=== PATIENT | male | born 1970 | race Caucasian/White ===

== ENCOUNTER 2016-09-01 16:15 | Emergency (ER) | payer OTHER ==
[~2016-09-01] VITALS: Ht 190.5 cm; Wt 127.0 kg
[2016-09-01 16:15] VITALS: BP 143/76
[2016-09-01] MEDS ORDERED: XARE20TA PO (16:26)
[2016-09-01] MEDS ORDERED: OMEP20CA3 PO (16:26)
[2016-09-01] MEDS ORDERED: INDOMETHACIN 25 MG CAP PO ONE (17:00)
[2016-09-01] MEDS ORDERED: INDO50SU2 PR (17:07)
[2016-09-01] MEDS ORDERED: INDO50SU2 PO (17:29)
[2016-09-01] MEDS ORDERED: INDO50CA PO (17:31)
[2016-09-01 17:54] LABS: ANION GAP 6 MEQ/L (8-16); BLOOD UREA NITROGEN 13 MG/DL (7-18); CALCIUM LEVEL 8.1 MG/DL (8.5-10.1); CARBON DIOXIDE LEVEL 27 MEQ/L (21-32); CHLORIDE LEVEL 108 MEQ/L (98-107); CREATININE FOR GFR 1.02 MG/DL (0.70-1.30); GLOMERULAR FILTRATION RATE > 60.0 (>60); GLUCOSE, FASTING 96 MG/DL (70-105); POTASSIUM SERUM 3.9 MEQ/L (3.5-5.1); SODIUM LEVEL 141 MEQ/L (136-145); URIC ACID 8.7 MG/DL (3.5-7.2)
== END 2016-09-01 17:42 | disposition home or self-care (01) ==
LOC: M ED 17:06
DX: M10.9 Gout, unspecified (principal); Z86.718 Personal history of other venous thrombosis and embolism; Z79.899 Other long term (current) drug therapy

== ENCOUNTER 2017-08-19 10:52 | Day surgery (SDC) | payer OTHER ==
[2017-08-19] MEDS ORDERED: PROPOFOL 200 MG/20 ML VIAL As Ordered ×2 (11:21→11:49)
[2017-08-19] MEDS ORDERED: LIDOCAINE 2% INJ 100 MG/5 ML SDV (FOR ANES.) As Ordered (11:21)
[2017-08-19] MEDS ORDERED: NS 1,000 ML IV (11:30)
== END 2017-08-19 12:50 | disposition home or self-care (01) ==
LOC: M OPP 10:52
DX: K62.5 Hemorrhage of anus and rectum (principal); D12.5 Benign neoplasm of sigmoid colon; D12.0 Benign neoplasm of cecum; K64.0 First degree hemorrhoids; Z86.79 Personal history of other diseases of the circulatory system; I73.9 Peripheral vascular disease, unspecified; K21.9 Gastro-esophageal reflux disease without esophagitis; M10.9 Gout, unspecified; Z86.718 Personal history of other venous thrombosis and embolism; D68.51 Activated protein C resistance; R06.83 Snoring; G47.30 Sleep apnea, unspecified; Z79.01 Long term (current) use of anticoagulants; Z79.899 Other long term (current) drug therapy
CPT/HCPCS: 45385

== ENCOUNTER → 2020-04-04 | Outpatient (CLI) | payer OTHER ==
[~2020-04-04] MED LIST: INDO50CA91 PO; INDO50SU2 PO; INDO50SU2 PR; OMEP1CAP73 PO; XARE20TA PO
--- NOTE | 2020-04-04 14:30 | REP ---
INDICATION: ABNORMAL LIVER FXN MRCP. COMPARISON: Comparison is made with images from CT study of the chest March 22, 2015. No other comparison imaging.. TECHNIQUE: Axial and coronal imaging planes utilized. MRCP protocol is performed. In addition, axial and coronal turbo spin echo, diffusion, in and out of phase, and gradient echo sequences are carried out. 3D maximum intensity projection images are generated. FINDINGS: There is no evidence of intrahepatic or extrahepatic biliary ductal dilation. There is a folded, possibly septated appearance of the gallbladder fundus but no filling defect is seen within the gallbladder. There is no evidence of cholelithiasis or choledocholithiasis. The main pancreatic duct is unremarkable. No pancreatic mass lesion is observed. There is no evidence of ascites. No focal hepatic or splenic lesion is seen. There is some signal dropout in the liver liver parenchyma on out of phase imaging consistent with fatty infiltration. No adrenal lesion is observed. No renal abnormality is seen. There is no evidence of ascites. IMPRESSION: Folded versus septated appearance the gallbladder fundus. No mass or calculus seen. Otherwise normal MRCP. Fatty infiltration of the liver. Otherwise unremarkable MRI of the liver an abdomen. <Electronically signed by Dwayne Nagel > 04/04/20 [id number]
== END ==
LOC: M RAD 10:47
DX: R94.5 Abnormal results of liver function studies (principal); K76.0 Fatty (change of) liver, not elsewhere classified

== ENCOUNTER → 2020-10-17 | Outpatient (CLI) | payer OTHER ==
[~2020-10-17] MED LIST changes: +COVI30VI IM; +WARF-21 PO; +WARF-23 PO
== END ==
LOC: M LABSMTC 10:21
PROVIDERS: ATTEND Anesthesiology
DX: Z01.812 Encounter for preprocedural laboratory examination (principal)

== ENCOUNTER 2020-10-22 07:49 | Day surgery (SDC) | payer OTHER ==
[~2020-10-22] VITALS: Ht 190.5 cm; Wt 122.5 kg
[~2020-10-22 07:49] MED LIST changes: +LIDOCAINE 2% 100MG/5ML SDV (FOR ANES.) As Ordered ONE; +NS 1,000 ML IV ONE; +propofoL 200 MG/20 ML VIAL As Ordered ONE
--- NOTE | 2020-10-22 09:02 | ROOR ---
Patient Name: Sonny Coe Procedure Date: 10/22/2020 8:37 AM Date of : 1970 Age: 50 Room: [facility] Gender: Male Note Status: Finalized Procedure: Total Colonoscopy to Cecum Indications: High risk colon cancer surveillance: Personal history of colonic polyps, Last colonoscopy: 2017 Providers: Sherwin Zamora MD Referring MD: JOHNY MCCLAIN MD Requesting Provider: Medicines: Monitored Anesthesia Care Complications: No immediate complications. Procedure: Pre-Anesthesia Assessment: - The heart rate, respiratory rate, oxygen saturations, blood pressure, adequacy of pulmonary ventilation, and response to care were monitored throughout the procedure. The Colonoscope was introduced through the anus and advanced to the cecum, identified by appendiceal orifice and ileocecal valve. The colonoscopy was performed without difficulty. The patient tolerated the procedure well. The quality of the bowel preparation was excellent. Findings: The perianal and digital rectal examinations were normal. Non-bleeding internal hemorrhoids were found during retroflexion. The hemorrhoids were small and Grade I (internal hemorrhoids that do not prolapse). The exam was otherwise without abnormality on direct and retroflexion views. Impression: - Non-bleeding internal hemorrhoids. - The examination was otherwise normal on direct and retroflexion views. - No specimens collected. - The exam was otherwise normal to the cecum. Recommendation: - Patient has a contact number available for emergencies. The signs and symptoms of potential delayed complications were discussed with the patient. Return to normal activities tomorrow. Written discharge instructions were provided to the patient. - High fiber diet. - Discharge patient to home. - Continue present medications. - Resume Coumadin (warfarin) at prior dose today. - Repeat colonoscopy in 5 years for surveillance. - Return to referring physician. - The findings and recommendations were discussed with the patient's family. Procedure Code(s): --- Professional --- G0105, Colorectal cancer screening; colonoscopy on individual at high risk Diagnosis Code(s): --- Professional --- Z86.010, Personal history of colonic polyps K64.0, First degree hemorrhoids CPT copyright 2019 [employer]. All rights reserved. The codes documented in this report are preliminary and upon cable mock up assembler review may be revised to meet current compliance requirements. Sherwin Zamora MD Sherwin Zamora MD 10/22/2020 9:01:43 AM Electronically signed by Sherwin Zamora MD Number of Addenda: 0 Note Initiated On: 10/22/2020 8:37 AM Estimated Blood Loss: Estimated blood loss: none.
[2020-10-22 09:17] VITALS: BP 127/88
== END 2020-10-22 09:19 | disposition home or self-care (01) ==
LOC: M OPP 07:49
PROVIDERS: ATTEND Internal Medicine Gastroenterology
DX: Z12.11 Encounter for screening for malignant neoplasm of colon (principal); Z86.010 Personal history of colon polyps; K64.0 First degree hemorrhoids; K21.9 Gastro-esophageal reflux disease without esophagitis; D68.51 Activated protein C resistance; Z79.01 Long term (current) use of anticoagulants

== ENCOUNTER 2020-12-23 12:49 | Emergency (ER) | payer OTHER ==
[~2020-12-23] VITALS: Ht 190.5 cm; Wt 125.0 kg
[~2020-12-23 12:49] MED LIST changes: -LIDOCAINE 2% 100MG/5ML SDV (FOR ANES.) As Ordered ONE; -NS 1,000 ML IV ONE; -propofoL 200 MG/20 ML VIAL As Ordered ONE
[2020-12-23 15:18] LABS: BASO % 0.4 % (0.0-1.0); EOS # 0.1 10^3/uL (0.0-0.5); EOS % 0.9 % (0.0-3.0); HEMATOCRIT 50.3 % (42.0-52.0); HEMOGLOBIN 17.2 g/dl (13.5-17.5); LYMPH % 25.8 % (24.0-44.0); MEAN CORPUSCULAR HEMOGLOBIN 30.6 pg (27.0-33.0); MEAN CORPUSCULAR HGB CONC 34.2 g/dl (32.0-36.5); MEAN CORPUSCULAR VOLUME 89.5 fl (80.0-96.0); MONO # 0.9 10^3/uL (0.0-0.8); MONO % 11.4 % (2.0-8.0); NEUTROPHILS # 4.6 10^3/uL (1.5-8.5); NEUTROPHILS % 60.7 % (36.0-66.0); PLATELET COUNT, AUTOMATED 170 10^3/uL (150-450); RED BLOOD COUNT 5.62 10^6/uL (4.30-6.10); WHITE BLOOD COUNT 7.6 10^3/uL (4.0-10.0)
[2020-12-23 15:54] LABS: BILIRUBIN,DIRECT 0.1 MG/DL (0.0-0.2); BILIRUBIN,TOTAL 0.5 MG/DL (0.2-1.0); C REACTIVE PROTEIN QUANTITATIV 2.9 MG/DL (0.00-0.30); TOTAL PROTEIN 7.7 GM/DL (6.4-8.2); URIC ACID 8.7 MG/DL (3.5-7.2)
--- NOTE | 2020-12-23 15:58 | REP ---
INDICATION: pain in foot/ hx calf pain COMPARISON: 11/11/2014 TECHNIQUE: Reyes scale and color Doppler evaluation using linear high frequency transducer. FINDINGS: Ultrasound examination of the left lower extremity deep venous structures from the common femoral vein through the calf/ankle to include the peroneal, and tibial veins demonstrates normal compressibility flow and wave patterns in response to respiration and augmentation. There is no evidence for deep venous thrombosis. Contralateral CFV is patent and normal. IMPRESSION: No evidence for deep venous thrombosis. <Electronically signed by Carlton Jalloh > 12/23/20 [id number]
[2020-12-23 16:05] VITALS: BP 112/73
[2020-12-23] MEDS ORDERED: MEDR4PAK PO (16:26)
[2020-12-23 16:35] LABS: ERYTHROCYTE SEDIMENTATION RATE 11 mm/hr (0-15)
== END 2020-12-23 16:58 | disposition home or self-care (01) ==
LOC: M ED 12:49
DX: M10.9 Gout, unspecified (principal); Z83.2 Family history of diseases of the blood and blood-forming organs and certain disorders involving the immune mechanism; Z79.01 Long term (current) use of anticoagulants

== ENCOUNTER 2021-09-26 11:28 | Emergency (ER) | payer OTHER ==
[~2021-09-26] VITALS: Ht 190.5 cm; Wt 285.0 kg
[~2021-09-26 11:28] MED LIST changes: +MEDR4PAK PO
[2021-09-26] MEDS ORDERED: NS 500 ML IV ONE (13:50)
[2021-09-26] MEDS ORDERED: ACETAMINOPHEN 325 MG TAB PO ONE (13:50)
[2021-09-26 14:15] LABS: BASO % 0.4 % (0.0-1.0); EOS # 0.1 10^3/uL (0.0-0.5); EOS % 1.2 % (0.0-3.0); HEMATOCRIT 46.6 % (42.0-52.0); LYMPH # 1.9 10^3/uL (1.5-5.0); LYMPH % 36.2 % (24.0-44.0); MEAN CORPUSCULAR HEMOGLOBIN 30.9 pg (27.0-33.0); MEAN CORPUSCULAR HGB CONC 34.3 g/dl (32.0-36.5); MEAN CORPUSCULAR VOLUME 90.1 fl (80.0-96.0); MONO # 0.6 10^3/uL (0.0-0.8); MONO % 10.8 % (2.0-8.0); NEUTROPHILS # 2.7 10^3/uL (1.5-8.5); NEUTROPHILS % 51.2 % (36.0-66.0); PLATELET COUNT, AUTOMATED 119 10^3/uL (150-450); RED BLOOD COUNT 5.17 10^6/uL (4.30-6.10); WHITE BLOOD COUNT 5.2 10^3/uL (4.0-10.0)
[2021-09-26 14:27] LABS: BLOOD UREA NITROGEN 12 MG/DL (7-18); CALCIUM LEVEL 9.7 MG/DL (8.5-10.1); CARBON DIOXIDE LEVEL 29 MEQ/L (21-32); CHLORIDE LEVEL 109 MEQ/L (98-107); CREATININE FOR GFR 1.05 MG/DL (0.70-1.30); GLOMERULAR FILTRATION RATE > 60.0 (>56); GLUCOSE, FASTING 87 MG/DL (70-100); POTASSIUM SERUM 4.8 MEQ/L (3.5-5.1); SODIUM LEVEL 142 MEQ/L (136-145)
[2021-09-26 14:41] LABS: ERYTHROCYTE SEDIMENTATION RATE 2 mm/hr (0-20)
[2021-09-26 15:04] LABS: INR 2.14; PROTHROMBIN TIME 24.3 SECONDS (12.7-14.5)
[2021-09-26 15:56] VITALS: BP 164/111
== END 2021-09-26 15:57 | disposition home or self-care (01) ==
LOC: M ED 11:28
DX: R51.9 Headache, unspecified (principal); K40.31 Unilateral inguinal hernia, with obstruction, without gangrene, recurrent; K21.9 Gastro-esophageal reflux disease without esophagitis; Z79.01 Long term (current) use of anticoagulants; Z79.899 Other long term (current) drug therapy

== ENCOUNTER 2022-04-28 14:58 | Emergency (ER) | payer OTHER ==
[~2022-04-28] VITALS: Ht 190.5 cm; Wt 125.0 kg
[2022-04-28] MEDS ORDERED: ALLO100T PO (15:27)
[2022-04-28] MEDS ORDERED: ACETAMINOPHEN TAB 650MG DOSE (2X325MG) PO ONE (18:30)
[2022-04-28] MEDS ORDERED: ceFAZolin SOD 2 GM in IV 1 EA IV ONE (18:35)
[2022-04-28 19:31] LABS: BASO % 0.4 % (0.0-1.0); EOS # 0.1 10^3/uL (0.0-0.5); EOS % 1.6 % (0.0-3.0); HEMATOCRIT 41.4 % (42.0-52.0); HEMOGLOBIN 14.4 g/dl (13.5-17.5); LYMPH # 1.6 10^3/uL (1.5-5.0); LYMPH % 32.3 % (24.0-44.0); MEAN CORPUSCULAR HEMOGLOBIN 31.3 pg (27.0-33.0); MEAN CORPUSCULAR HGB CONC 34.8 g/dl (32.0-36.5); MONO # 0.6 10^3/uL (0.0-0.8); MONO % 11.8 % (2.0-8.0); NEUTROPHILS # 2.6 10^3/uL (1.5-8.5); NEUTROPHILS % 53.7 % (36.0-66.0); PLATELET COUNT, AUTOMATED 144 10^3/uL (150-450); WHITE BLOOD COUNT 4.9 10^3/uL (4.0-10.0)
[2022-04-28 19:44] LABS: INR 1.45; PROTHROMBIN TIME 17.9 SECONDS (12.5-14.5)
[2022-04-28 19:53] LABS: BLOOD UREA NITROGEN 14 MG/DL (9-23); CALCIUM LEVEL 8.6 MG/DL (8.5-10.1); CARBON DIOXIDE LEVEL 28 MMOL/L (20-31); CHLORIDE LEVEL 106 MMOL/L (98-107); CREATININE FOR GFR 1.08 MG/DL (0.70-1.30); GLOMERULAR FILTRATION RATE > 60.0 (>56); GLUCOSE, FASTING 77 MG/DL (60-100); POTASSIUM SERUM 3.9 MMOL/L (3.5-5.1); SODIUM LEVEL 141 MMOL/L (136-145)
[2022-04-28] MEDS ORDERED: CEPH500C PO (21:07)
[2022-04-28] MEDS ORDERED: NS 1,000 ML IV ONE (21:10)
[2022-04-28 22:19] VITALS: BP 130/81
== END 2022-04-28 22:51 | disposition home or self-care (01) ==
LOC: M ED 14:58
DX: L03.115 Cellulitis of right lower limb (principal); K21.9 Gastro-esophageal reflux disease without esophagitis; D68.2 Hereditary deficiency of other clotting factors; Z79.01 Long term (current) use of anticoagulants; Z79.2 Long term (current) use of antibiotics; Z79.84 Long term (current) use of oral hypoglycemic drugs; Z86.718 Personal history of other venous thrombosis and embolism
CPT/HCPCS: 80048; 85025; 85610; 87040; 93971; 96365; 99284; J0690

== ENCOUNTER → 2022-07-03 | Outpatient (CLI) | payer OTHER ==
[~2022-07-03] MED LIST changes: +ALLO100T PO; +CEPH500C PO; +ISOVUE-370 76% 100ML VIAL As Ordered ONE
== END ==
LOC: M RAD 10:11
PROVIDERS: ATTEND Otolaryngology
DX: D37.030 Neoplasm of uncertain behavior of the parotid salivary glands (principal); J32.0 Chronic maxillary sinusitis; J34.1 Cyst and mucocele of nose and nasal sinus; J34.89 Other specified disorders of nose and nasal sinuses

== ENCOUNTER → 2022-07-14 | Outpatient (CLI) | payer OTHER ==
[~2022-07-14] MED LIST changes: +EQL50TAB2 PO; -ISOVUE-370 76% 100ML VIAL As Ordered ONE; +VITA100093 PO
[2022-07-14 15:26] LABS: RHEUMATOID FACTOR QUANT < 3.5 IU/ML (<14); TOTAL IRON BINDING CAPACITY 357 UG/DL (250-425)
[2022-07-14 15:27] LABS: IRON (FE) 99 UG/DL (65-175); PERCENT SATURATION 27.7 % (19.7-50.0)
[2022-07-14 15:30] LABS: ALBUMIN 4.5 G/DL (3.2-5.2); ALKALINE PHOSPHATASE 70 U/L (46-116); ALT/SGPT 36 U/L (7.0-40); AST/SGOT 26 U/L (<34); BILIRUBIN,TOTAL 0.6 MG/DL (0.3-1.2); BLOOD UREA NITROGEN 16 MG/DL (9-23); CALCIUM LEVEL 9.5 MG/DL (8.5-10.1); CARBON DIOXIDE LEVEL 27 MMOL/L (20-31); CHLORIDE LEVEL 107 MMOL/L (98-107); CREATININE FOR GFR 0.89 MG/DL (0.70-1.30); FERRITIN 210.1 NG/ML (10.5-307.3); FREE THYROXINE INDEX 3.4 % (1.4-3.8); GLOMERULAR FILTRATION RATE > 60.0 (>56); GLUCOSE, FASTING 92 MG/DL (60-100); POTASSIUM SERUM 4.3 MMOL/L (3.5-5.1); SODIUM LEVEL 139 MMOL/L (136-145); T UPTAKE 33.9 % (22.5-37.0); THYROID STIMULATING HORMONE 1.052 uIU/ML (0.55-4.78); THYROXINE (T4) 9.9 UG/DL (4.5-10.9); TOTAL PROTEIN 7.3 G/DL (5.7-8.2); VITAMIN B12 LEVEL 442 PG/ML (211-911)
[2022-07-14 15:32] LABS: BASO % 0.6 % (0.0-1.0); EOS # 0.1 10^3/uL (0.0-0.5); EOS % 1.5 % (0.0-3.0); HEMATOCRIT 50.4 % (42.0-52.0); HEMOGLOBIN 16.7 g/dl (13.5-17.5); LYMPH # 1.5 10^3/uL (1.5-5.0); LYMPH % 31.8 % (24.0-44.0); MEAN CORPUSCULAR HEMOGLOBIN 30.4 pg (27.0-33.0); MEAN CORPUSCULAR HGB CONC 33.1 g/dl (32.0-36.5); MEAN CORPUSCULAR VOLUME 91.8 fl (80.0-96.0); MONO # 0.4 10^3/uL (0.0-0.8); MONO % 9.2 % (2.0-8.0); NEUTROPHILS # 2.6 10^3/uL (1.5-8.5); NEUTROPHILS % 56.7 % (36.0-66.0); PLATELET COUNT, AUTOMATED 123 10^3/uL (150-450); RED BLOOD COUNT 5.49 10^6/uL (4.30-6.10); WHITE BLOOD COUNT 4.7 10^3/uL (4.0-10.0)
[2022-07-14 15:34] LABS: CPK CREATINE PHOSPHOKINASE 193 U/L (46-171); FOLATE 17.4 NG/ML (>5.4)
[2022-07-14 15:56] LABS: ERYTHROCYTE SEDIMENTATION RATE 3 mm/hr (0-20)
[2022-07-24 10:09] LABS: ALDOLASE 4.6 U/L (3.3-10.3); ANTI DS-DNA AB Negative (Negative); ANTI SMITH(Sm) AB <20 Units (<20); ANTI-HISTONE ANTIBODIES 0.5 Units (0.0-0.9); ANTI-U1 RNP AB <20 Units (<20); ANTINUCLEAR ANTIBODIES DIRECT Negative (Negative); IgG P18 AB Absent (.); IgG P23 AB Absent (.); IgG P28 AB Absent (.); IgG P30 AB Absent (.); IgG P39 AB Absent (.); IgG P41 AB Present (.); IgG P45 AB Absent (.); IgG P66 AB Absent (.); IgG P93 AB Absent (.); IgM P23 AB Absent (.); IgM P39 AB Absent (.); IgM P41 AB Absent (.); LYME IgG WB INTERPRETATION Negative (.); LYME IgM WB INTERPRETATION Negative (.); SJOGREN'S ANTI SS-A <0.2 AI (0.0-0.9); SJOGREN'S ANTI SS-B <0.2 AI (0.0-0.9); VITAMIN B1 LEVEL WHOLE BLOOD 186.6 nmol/L (66.5-200.0); VITAMIN B6,PYRIDOXAL PHOSPHATE 51.2 ug/L (3.4-65.2); VITAMIN E(ALPHA TOCOPHEROL) 14.3 mg/L (7.0-25.1); VITAMIN E(GAMMA TOCOPHEROL) 1.6 mg/L (0.5-5.5)
== END ==
LOC: M PLALAB 10:11
PROVIDERS: ATTEND Psychiatry & Neurology Neurology
DX: R53.83 Other fatigue (principal); E07.9 Disorder of thyroid, unspecified; E53.8 Deficiency of other specified B group vitamins; E61.1 Iron deficiency; Z11.59 Encounter for screening for other viral diseases

== ENCOUNTER → 2022-07-16 | Outpatient (CLI) | payer OTHER ==
[~2022-07-16] MED LIST changes: +LIDOCAINE 1% MDV 20ML VIAL As Ordered ONE
[2022-07-16 11:46] LABS: INR 1.32; PROTHROMBIN TIME 16.6 SECONDS (12.5-14.5)
[2022-07-16 12:22] VITALS: BP 144/84
== END ==
LOC: M IRPRO 11:02
PROVIDERS: ATTEND Otolaryngology
DX: D11.0 Benign neoplasm of parotid gland (principal)

== ENCOUNTER → 2022-08-11 | Outpatient (CLI) | payer OTHER ==
[~2022-08-11] MED LIST changes: -LIDOCAINE 1% MDV 20ML VIAL As Ordered ONE
== END ==
LOC: M PLALAB 14:35
PROVIDERS: ATTEND Internal Medicine Cardiovascular Disease
DX: I49.3 Ventricular premature depolarization (principal)

== ENCOUNTER → 2022-11-07 | Outpatient (CLI) | payer OTHER ==
[~2022-11-07] MED LIST changes: +ISOVUE-370 76% 100ML VIAL As Ordered ONE
== END ==
LOC: M RAD 13:19
PROVIDERS: ATTEND Otolaryngology
DX: D11.0 Benign neoplasm of parotid gland (principal)

== ENCOUNTER 2023-04-27 08:32 | Emergency (ER) | payer OTHER ==
[~2023-04-27] VITALS: Ht 190.5 cm; Wt 120.7 kg
[~2023-04-27 08:32] MED LIST changes: -ISOVUE-370 76% 100ML VIAL As Ordered ONE
[2023-04-27 08:33] VITALS: BP 150/84; TEMP 96.8; O2SAT 95
[2023-04-27] MEDS ORDERED: ALBUTEROL SULFATE 2.5MG/0.5ML INH NEB SOLN INH ONE (09:50)
[2023-04-27] MEDS ORDERED: predniSONE 20 MG TAB PO ONE (09:50)
[2023-04-27] MEDS ORDERED: IPRATROPIUM 0.5MG/ALBUTEROL 2.5MG INH SOL UD 3ML (DUONEB) NEB ONE (09:50)
[2023-04-27] MEDS ORDERED: ALBU6.7H6 INH (10:38)
[2023-04-27] MEDS ORDERED: PRED20TA PO (10:38)
[2023-04-27] MEDS ORDERED: ALBUTEROL 90 MCG/ACT 8GM HFA INHALER INH ONE (10:40)
== END 2023-04-27 10:52 | disposition home or self-care (01) ==
LOC: M ED 08:32
DX: J20.9 Acute bronchitis, unspecified (principal); B34.8 Other viral infections of unspecified site; F10.10 Alcohol abuse, uncomplicated; K21.9 Gastro-esophageal reflux disease without esophagitis; D68.2 Hereditary deficiency of other clotting factors; Z86.718 Personal history of other venous thrombosis and embolism; Z79.52 Long term (current) use of systemic steroids; Z79.83 Long term (current) use of bisphosphonates; Z79.01 Long term (current) use of anticoagulants; Z79.899 Other long term (current) drug therapy
CPT/HCPCS: 71046; 87486; 87581; 87633; 87798; 94640; 99283; J7512

== ENCOUNTER → 2023-06-09 | Outpatient (CLI) | payer OTHER ==
[~2023-06-09] MED LIST changes: +ALBU6.7H6 INH; +PRED20TA PO
== END ==
LOC: M RAD 12:20
PROVIDERS: ATTEND Otolaryngology
DX: D11.0 Benign neoplasm of parotid gland (principal)

== ENCOUNTER → 2023-06-12 | Outpatient (CLI) | payer OTHER | LOC: M RAD 08:20 | PROVIDERS: ATTEND Nurse Practitioner Primary Care | DX: J47.9 Bronchiectasis, uncomplicated (principal); K76.0 Fatty (change of) liver, not elsewhere classified; R06.00 Dyspnea, unspecified ==

== ENCOUNTER → 2023-08-13 | Outpatient (CLI) | payer OTHER ==
[~2023-08-13] MED LIST changes: +METHACHOLINE KIT (6 VIAL.NEB PREMIX) INH ONE
== END ==
LOC: M CARPUL 07:26
PROVIDERS: ATTEND Physician Assistant
DX: R06.00 Dyspnea, unspecified (principal)
CPT/HCPCS: 94070; J7674

== ENCOUNTER → 2023-09-22 | Outpatient (CLI) | payer OTHER ==
[~2023-09-22] MED LIST changes: -METHACHOLINE KIT (6 VIAL.NEB PREMIX) INH ONE
[2023-09-22 12:34] LABS: BASO % 0.5 % (0.0-1.0); EOS # 0.1 10^3/uL (0.0-0.5); EOS % 1.6 % (0.0-3.0); HEMATOCRIT 44.8 % (42.0-52.0); HEMOGLOBIN 15.7 g/dl (13.5-17.5); LYMPH # 1.5 10^3/uL (1.5-5.0); LYMPH % 33.2 % (24.0-44.0); MEAN CORPUSCULAR HEMOGLOBIN 31.5 pg (27.0-33.0); MEAN CORPUSCULAR VOLUME 89.8 fl (80.0-96.0); MONO # 0.5 10^3/uL (0.0-0.8); NEUTROPHILS # 2.3 10^3/uL (1.5-8.5); NEUTROPHILS % 53.5 % (36.0-66.0); PLATELET COUNT, AUTOMATED 127 10^3/uL (150-450); RED BLOOD COUNT 4.99 10^6/uL (4.30-6.10); WHITE BLOOD COUNT 4.4 10^3/uL (4.0-10.0)
[2023-09-22 13:03] LABS: FERRITIN 377.5 NG/ML (10.5-307.3); HEPATITIS B SURFACE ANTIBODY POSITIVE (POSITIVE)
[2023-09-22 13:04] LABS: ALBUMIN 4.3 G/DL (3.2-5.2); ALKALINE PHOSPHATASE 64 U/L (46-116); ALT/SGPT 62 U/L (7.0-40); AST/SGOT 28 U/L (<34); BILIRUBIN,DIRECT 0.3 MG/DL (<0.4); BILIRUBIN,TOTAL 0.9 MG/DL (0.3-1.2); TOTAL PROTEIN 6.9 G/DL (5.7-8.2)
[2023-09-22 13:05] LABS: TESTOSTERONE 628 NG/DL (241-827); THYROID STIMULATING HORMONE 1.074 uIU/ML (0.55-4.78)
[2023-09-22 13:06] LABS: FREE T4 1.13 NG/DL (0.89-1.76)
[2023-09-22 13:29] LABS: HIV 1&2 SCREEN NEGATIVE (NEGATIVE)
[2023-09-22 13:36] LABS: HEPATITIS B CORE ANTIBODY IGM NEGATIVE (NEGATIVE); HEPATITIS C VIRUS ABY INDEX 0.23 INDEX (<0.8)
== END ==
LOC: M PLALAB 09:32
PROVIDERS: ATTEND Internal Medicine Hematology
DX: D69.6 Thrombocytopenia, unspecified (principal); E83.110 Hereditary hemochromatosis; I82.90 Acute embolism and thrombosis of unspecified vein

== ENCOUNTER 2023-10-16 11:21 | Outpatient (CLI) | payer OTHER ==
[2023-10-16 11:50] VITALS: BP 150/90; O2SAT 95
[2023-10-16 12:10] VITALS: BP 141/89; O2SAT 96
[2023-10-16 12:10] LABS: HEMATOCRIT 46.4 % (42.0-52.0); HEMOGLOBIN 16.1 g/dl (13.5-17.5); MEAN CORPUSCULAR HEMOGLOBIN 31.4 pg (27.0-33.0); MEAN CORPUSCULAR HGB CONC 34.7 g/dl (32.0-36.5); MEAN CORPUSCULAR VOLUME 90.4 fl (80.0-96.0); PLATELET COUNT, AUTOMATED 113 10^3/uL (150-450); RED BLOOD COUNT 5.13 10^6/uL (4.30-6.10); WHITE BLOOD COUNT 5.4 10^3/uL (4.0-10.0)
== END 2023-10-16 12:10 ==
LOC: M INFU 11:21
PROVIDERS: ATTEND Internal Medicine Hematology
DX: E83.110 Hereditary hemochromatosis (principal)

== ENCOUNTER 2023-10-30 12:30 | Outpatient (CLI) | payer OTHER ==
[2023-10-30 13:02] LABS: HEMATOCRIT 43.3 % (42.0-52.0); HEMOGLOBIN 15.2 g/dl (13.5-17.5); MEAN CORPUSCULAR HEMOGLOBIN 31.5 pg (27.0-33.0); MEAN CORPUSCULAR HGB CONC 35.1 g/dl (32.0-36.5); MEAN CORPUSCULAR VOLUME 89.6 fl (80.0-96.0); PLATELET COUNT, AUTOMATED 120 10^3/uL (150-450); RED BLOOD COUNT 4.83 10^6/uL (4.30-6.10); WHITE BLOOD COUNT 5.2 10^3/uL (4.0-10.0)
[2023-10-30 13:30] VITALS: BP 128/77; O2SAT 94
== END 2023-10-30 13:30 ==
LOC: M INFU 12:30
PROVIDERS: ATTEND Internal Medicine Hematology
DX: E83.110 Hereditary hemochromatosis (principal)

== ENCOUNTER 2023-11-13 12:20 | Outpatient (CLI) | payer OTHER ==
[~2023-11-13] VITALS: Ht 188 cm; Wt 125.0 kg
[2023-11-13 12:30] VITALS: BP 136/84; O2SAT 97
[2023-11-13 12:43] LABS: HEMATOCRIT 44.1 % (42.0-52.0); HEMOGLOBIN 15.6 g/dl (13.5-17.5); MEAN CORPUSCULAR HEMOGLOBIN 31.3 pg (27.0-33.0); MEAN CORPUSCULAR HGB CONC 35.4 g/dl (32.0-36.5); MEAN CORPUSCULAR VOLUME 88.6 fl (80.0-96.0); PLATELET COUNT, AUTOMATED 129 10^3/uL (150-450); RED BLOOD COUNT 4.98 10^6/uL (4.30-6.10)
== END 2023-11-13 13:15 ==
LOC: M INFU 12:20
PROVIDERS: ATTEND Internal Medicine Hematology
DX: E83.110 Hereditary hemochromatosis (principal)

== ENCOUNTER → 2023-11-25 | Outpatient (CLI) | payer OTHER | LOC: M PLALAB 10:43 | PROVIDERS: ATTEND Internal Medicine Hematology | DX: I82.90 Acute embolism and thrombosis of unspecified vein (principal) ==

== ENCOUNTER 2023-11-27 12:35 | Outpatient (CLI) | payer OTHER ==
[~2023-11-27] VITALS: Ht 188 cm; Wt 125.0 kg
[2023-11-27 12:35] VITALS: BP 145/82; O2SAT 98
[2023-11-27 13:02] LABS: HEMATOCRIT 44.6 % (42.0-52.0); HEMOGLOBIN 15.6 g/dl (13.5-17.5); MEAN CORPUSCULAR HEMOGLOBIN 31.9 pg (27.0-33.0); MEAN CORPUSCULAR VOLUME 91.2 fl (80.0-96.0); PLATELET COUNT, AUTOMATED 113 10^3/uL (150-450); RED BLOOD COUNT 4.89 10^6/uL (4.30-6.10); WHITE BLOOD COUNT 4.1 10^3/uL (4.0-10.0)
[2023-11-27 14:00] VITALS: BP 120/82; O2SAT 96
== END 2023-11-27 14:00 ==
LOC: M INFU 12:35
PROVIDERS: ATTEND Internal Medicine Hematology
DX: E83.110 Hereditary hemochromatosis (principal)

== ENCOUNTER → 2023-12-01 | Outpatient (REF) | payer OTHER | LOC: M LAB REF 13:20 | PROVIDERS: ATTEND Internal Medicine Hematology | DX: I82.90 Acute embolism and thrombosis of unspecified vein (principal); Z86.718 Personal history of other venous thrombosis and embolism ==

== ENCOUNTER → 2023-12-10 | Outpatient (CLI) | payer OTHER ==
[~2023-12-10] MED LIST changes: +ISOVUE-370 76% 100ML VIAL As Ordered ONE
== END ==
LOC: M RAD 15:26
PROVIDERS: ATTEND Student in an Organized Health Care Education/Training Program
DX: I82.409 Acute embolism and thrombosis of unspecified deep veins of unspecified lower extremity (principal); K76.0 Fatty (change of) liver, not elsewhere classified; K44.9 Diaphragmatic hernia without obstruction or gangrene
CPT/HCPCS: 71275; 74178; Q9967

== ENCOUNTER 2023-12-18 12:00 | Outpatient (CLI) | payer OTHER ==
[~2023-12-18] VITALS: Ht 190.5 cm; Wt 122.7 kg
[2023-12-18 12:00] VITALS: BP 166/85; O2SAT 94
[~2023-12-18 12:00] MED LIST changes: -ISOVUE-370 76% 100ML VIAL As Ordered ONE
[2023-12-18 12:23] LABS: HEMATOCRIT 45.2 % (42.0-52.0); HEMOGLOBIN 15.7 g/dl (13.5-17.5); MEAN CORPUSCULAR HEMOGLOBIN 31.2 pg (27.0-33.0); MEAN CORPUSCULAR HGB CONC 34.7 g/dl (32.0-36.5); MEAN CORPUSCULAR VOLUME 89.9 fl (80.0-96.0); PLATELET COUNT, AUTOMATED 128 10^3/uL (150-450); RED BLOOD COUNT 5.03 10^6/uL (4.30-6.10); WHITE BLOOD COUNT 4.3 10^3/uL (4.0-10.0)
[2023-12-18 13:20] VITALS: BP 134/86; O2SAT 94
== END 2023-12-18 13:20 ==
LOC: M INFU 12:00
PROVIDERS: ATTEND Internal Medicine Hematology
DX: E83.119 Hemochromatosis, unspecified (principal)

== ENCOUNTER → 2023-12-30 | Outpatient (CLI) | payer OTHER ==
[~2023-12-30] MED LIST changes: +HYDR-3713 PO
[2023-12-30 15:53] LABS: BASO % 0.4 % (0.0-1.0); EOS # 0.1 10^3/uL (0.0-0.5); HEMATOCRIT 42.4 % (42.0-52.0); HEMOGLOBIN 14.4 g/dl (13.5-17.5); LYMPH # 1.2 10^3/uL (1.5-5.0); LYMPH % 23.9 % (24.0-44.0); MEAN CORPUSCULAR HEMOGLOBIN 31.1 pg (27.0-33.0); MEAN CORPUSCULAR VOLUME 91.6 fl (80.0-96.0); MONO # 0.6 10^3/uL (0.0-0.8); MONO % 11.3 % (2.0-8.0); NEUTROPHILS # 3.1 10^3/uL (1.5-8.5); NEUTROPHILS % 63.2 % (36.0-66.0); PLATELET COUNT, AUTOMATED 128 10^3/uL (150-450); RED BLOOD COUNT 4.63 10^6/uL (4.30-6.10); WHITE BLOOD COUNT 4.9 10^3/uL (4.0-10.0)
[2023-12-30 16:07] LABS: ALBUMIN 4.2 G/DL (3.2-5.2); ALKALINE PHOSPHATASE 55 U/L (46-116); ALT/SGPT 44 U/L (7.0-40); AST/SGOT 23 U/L (<34); BILIRUBIN,TOTAL 0.6 MG/DL (0.3-1.2); BLOOD UREA NITROGEN 13 MG/DL (9-23); CALCIUM LEVEL 9.1 MG/DL (8.5-10.1); CARBON DIOXIDE LEVEL 28 MMOL/L (20-31); CHLORIDE LEVEL 105 MMOL/L (98-107); CREATININE FOR GFR 1.08 MG/DL (0.70-1.30); FERRITIN 47.2 NG/ML (10.5-307.3); GLOMERULAR FILTRATION RATE > 60.0 (>56); GLUCOSE, FASTING 72 MG/DL (60-100); POTASSIUM SERUM 3.8 MMOL/L (3.5-5.1); SODIUM LEVEL 137 MMOL/L (136-145); TOTAL PROTEIN 6.8 G/DL (5.7-8.2)
== END ==
LOC: M PLALAB 13:49
PROVIDERS: ATTEND Internal Medicine Hematology
DX: E83.110 Hereditary hemochromatosis (principal); D69.6 Thrombocytopenia, unspecified; I82.90 Acute embolism and thrombosis of unspecified vein

== ENCOUNTER 2024-01-02 21:29 | Emergency (ER) | payer OTHER ==
[~2024-01-02] VITALS: Ht 190.5 cm; Wt 125.7 kg
[2024-01-02 20:54] VITALS: TEMP 99.6
[2024-01-02 22:17] LABS: BASO % 0.4 % (0.0-1.0); EOS # 0.1 10^3/uL (0.0-0.5); EOS % 1.3 % (0.0-3.0); HEMATOCRIT 43.7 % (42.0-52.0); HEMOGLOBIN 15.3 g/dl (13.5-17.5); LYMPH # 1.5 10^3/uL (1.5-5.0); MEAN CORPUSCULAR HEMOGLOBIN 31.4 pg (27.0-33.0); MEAN CORPUSCULAR VOLUME 89.5 fl (80.0-96.0); MONO # 0.6 10^3/uL (0.0-0.8); NEUTROPHILS # 4.9 10^3/uL (1.5-8.5); PLATELET COUNT, AUTOMATED 127 10^3/uL (150-450); RED BLOOD COUNT 4.88 10^6/uL (4.30-6.10); WHITE BLOOD COUNT 7.2 10^3/uL (4.0-10.0)
[2024-01-02] MEDS ORDERED: ISOVUE-370 76% 100ML VIAL As Ordered ONE (22:19)
[2024-01-02] MEDS: NS 1,000 ML IV ONE (22:36)
[2024-01-02 22:52] LABS: BLOOD UREA NITROGEN 14 MG/DL (9-23); CALCIUM LEVEL 9.6 MG/DL (8.5-10.1); CARBON DIOXIDE LEVEL 25 MMOL/L (20-31); CHLORIDE LEVEL 106 MMOL/L (98-107); CK-MB VALUE MASS 1.4 NG/ML (<3.6); CREATININE FOR GFR 1.02 MG/DL (0.70-1.30); GLOMERULAR FILTRATION RATE > 60.0 (>56); GLUCOSE, FASTING 144 MG/DL (60-100); POTASSIUM SERUM 3.9 MMOL/L (3.5-5.1); SODIUM LEVEL 140 MMOL/L (136-145)
[2024-01-02 22:53] LABS: CPK CREATINE PHOSPHOKINASE 135 U/L (46-171); MB/CK RELATIVE INDEX 1.03 (< OR =4)
[2024-01-02] MEDS: MORPHINE 2 MG/ML 1ML VIAL IV ONE (23:48)
[2024-01-02] MEDS: ENOXAPARIN 120MG/0.8ML SYRINGE SC ONE (23:52)
[2024-01-03] MEDS ORDERED: TRAM50TA2 PO (02:30)
[2024-01-03 03:00] VITALS: BP 136/83
[2024-01-03] MEDS: traMADol 50 MG TAB PO ONE (03:20)
[2024-01-03 03:28] VITALS: O2SAT 80
== END 2024-01-03 03:38 | disposition home or self-care (01) ==
LOC: M ED 21:29
DX: G89.18 Other acute postprocedural pain (principal); M79.604 Pain in right leg; K21.9 Gastro-esophageal reflux disease without esophagitis; G47.33 Obstructive sleep apnea (adult) (pediatric); D68.51 Activated protein C resistance; Z86.718 Personal history of other venous thrombosis and embolism; Z79.52 Long term (current) use of systemic steroids; Z79.01 Long term (current) use of anticoagulants; Z79.899 Other long term (current) drug therapy
CPT/HCPCS: 71275; 73700; 80047; 80048; 82550; 82553; 84484; 85025; 93005; 93971; 96361; 96374; 99284; J1650; Q9967

== ENCOUNTER 2024-01-06 19:19 | Inpatient (IN) | payer OTHER ==
[~2024-01-06] VITALS: Ht 190.5 cm; Wt 123.9 kg
[~2024-01-06 19:19] MED LIST changes: +TRAM50TA2 PO
[2024-01-06] MEDS ORDERED: ACETAMINOPHEN TAB 650MG DOSE (2X325MG) PO PRN (19:30)
[2024-01-06] MEDS ORDERED: MOM 30ML SUSPENSION UDC PO PRN (19:30)
[2024-01-06] MEDS: ADVAIR HFA 115/21MCG INHALER INH SCH (20:00)
[2024-01-06 21:00] VITALS: BP 131/85; TEMP 97.7; O2SAT 98
[2024-01-06] MEDS: DOCUSATE SODIUM 100MG CAPSULE PO SCH (21:00)
[2024-01-06] MEDS ORDERED: LOVE0.01 INJ (21:34)
[2024-01-06] MEDS ORDERED: FLUT1BLS3 PO (21:34)
[2024-01-06] MEDS ORDERED: HOME MED LIST COMPLETE! XX SCH (21:35)
[2024-01-06 21:58] LABS: HEMATOCRIT 40.1 % (42.0-52.0); HEMOGLOBIN 13.8 g/dl (13.5-17.5); MEAN CORPUSCULAR HEMOGLOBIN 31.2 pg (27.0-33.0); MEAN CORPUSCULAR HGB CONC 34.4 g/dl (32.0-36.5); MEAN CORPUSCULAR VOLUME 90.7 fl (80.0-96.0); PLATELET COUNT, AUTOMATED 148 10^3/uL (150-450); RED BLOOD COUNT 4.42 10^6/uL (4.30-6.10); WHITE BLOOD COUNT 5.2 10^3/uL (4.0-10.0)
[2024-01-06 22:11] LABS: INR 1.16; PARTIAL THROMBOPLASTIN TIME 33.2 SECONDS (24.8-34.2); PROTHROMBIN TIME 14.5 SECONDS (12.5-14.5)
[2024-01-06 22:38] LABS: ALBUMIN 4.1 G/DL (3.2-5.2); ALKALINE PHOSPHATASE 53 U/L (46-116); ALT/SGPT 31 U/L (7.0-40); AST/SGOT 19 U/L (<34); BLOOD UREA NITROGEN 17 MG/DL (9-23); CALCIUM LEVEL 9.1 MG/DL (8.5-10.1); CARBON DIOXIDE LEVEL 29 MMOL/L (20-31); CHLORIDE LEVEL 103 MMOL/L (98-107); CREATININE FOR GFR 1.21 MG/DL (0.70-1.30); GLOMERULAR FILTRATION RATE > 60.0 (>56); GLUCOSE, FASTING 112 MG/DL (60-100); SODIUM LEVEL 138 MMOL/L (136-145); TOTAL PROTEIN 6.9 G/DL (5.7-8.2)
[2024-01-07] MEDS: UNRESOLVED CLARIFICATION ENTRY XX STA (00:37)
[2024-01-07] MEDS ORDERED: HEPARIN SOD (PORCINE) 5000UNITS/ML 1ML VIAL/SYRINGE IV PRN (03:00)
[2024-01-07] MEDS: HEPARIN SOD (PORCINE) 5000UNITS/ML 1ML VIAL/SYRINGE IV ONE (03:01)
[2024-01-07] MEDS: HEPARIN DRIP 25,000 UNITS in IV 1 EA IV SCH (03:02)
[2024-01-07 04:17] VITALS: BP 120/70; TEMP 97.7; O2SAT 98
[2024-01-07 06:01] LABS: HEMATOCRIT 39.8 % (42.0-52.0); HEMOGLOBIN 13.5 g/dl (13.5-17.5); MEAN CORPUSCULAR HEMOGLOBIN 30.6 pg (27.0-33.0); MEAN CORPUSCULAR HGB CONC 33.9 g/dl (32.0-36.5); MEAN CORPUSCULAR VOLUME 90.2 fl (80.0-96.0); PLATELET COUNT, AUTOMATED 153 10^3/uL (150-450); RED BLOOD COUNT 4.41 10^6/uL (4.30-6.10); WHITE BLOOD COUNT 5.1 10^3/uL (4.0-10.0)
[2024-01-07 06:33] LABS: BLOOD UREA NITROGEN 20 MG/DL (9-23); CALCIUM LEVEL 9.5 MG/DL (8.5-10.1); CARBON DIOXIDE LEVEL 26 MMOL/L (20-31); CHLORIDE LEVEL 106 MMOL/L (98-107); CREATININE FOR GFR 1.09 MG/DL (0.70-1.30); GLOMERULAR FILTRATION RATE > 60.0 (>56); GLUCOSE, FASTING 116 MG/DL (60-100); SODIUM LEVEL 138 MMOL/L (136-145)
[2024-01-07] MEDS ORDERED: FOND10SO SC (11:17)
[2024-01-07 12:08] VITALS: BP 127/73; TEMP 97.7; O2SAT 95
[2024-01-07] MEDS: FONDAPARINUX SODIUM 2.5 MG/0.5 ML SYRINGE SQ SCH (14:44)
[2024-01-07 20:52] VITALS: BP 120/79; TEMP 97.9; O2SAT 95
[2024-01-08 04:46] VITALS: BP 117/74; TEMP 97.7; O2SAT 96
[2024-01-08 05:48] LABS: BASO % 0.4 % (0.0-1.0); EOS # 0.1 10^3/uL (0.0-0.5); EOS % 2.3 % (0.0-3.0); HEMATOCRIT 38.2 % (42.0-52.0); HEMOGLOBIN 12.8 g/dl (13.5-17.5); MEAN CORPUSCULAR HEMOGLOBIN 30.4 pg (27.0-33.0); MEAN CORPUSCULAR HGB CONC 33.5 g/dl (32.0-36.5); MEAN CORPUSCULAR VOLUME 90.7 fl (80.0-96.0); MONO # 0.6 10^3/uL (0.0-0.8); MONO % 12.1 % (2.0-8.0); NEUTROPHILS # 3.4 10^3/uL (1.5-8.5); NEUTROPHILS % 64.8 % (36.0-66.0); PLATELET COUNT, AUTOMATED 166 10^3/uL (150-450); RED BLOOD COUNT 4.21 10^6/uL (4.30-6.10); WHITE BLOOD COUNT 5.2 10^3/uL (4.0-10.0)
[2024-01-08 06:13] LABS: BLOOD UREA NITROGEN 15 MG/DL (9-23); CALCIUM LEVEL 8.9 MG/DL (8.5-10.1); CARBON DIOXIDE LEVEL 28 MMOL/L (20-31); CHLORIDE LEVEL 106 MMOL/L (98-107); GLOMERULAR FILTRATION RATE > 60.0 (>56); GLUCOSE, FASTING 114 MG/DL (60-100); POTASSIUM SERUM 4.5 MMOL/L (3.5-5.1); SODIUM LEVEL 138 MMOL/L (136-145)
[2024-01-08] MEDS ORDERED: [UNRECOGNIZED DRUG - CODE] SQ (12:32)
== END 2024-01-08 13:00 | disposition home or self-care (01) | DRG 300 ==
LOC: M MSPAV 19:19
PROVIDERS: ADMIT Student in an Organized Health Care Education/Training Program; ATTEND Internal Medicine
DX: I82.401 Acute embolism and thrombosis of unspecified deep veins of right lower extremity (principal); D68.51 Activated protein C resistance; J45.909 Unspecified asthma, uncomplicated; D69.6 Thrombocytopenia, unspecified; E83.110 Hereditary hemochromatosis; K76.0 Fatty (change of) liver, not elsewhere classified; Z79.01 Long term (current) use of anticoagulants; Z79.899 Other long term (current) drug therapy

== ENCOUNTER 2024-02-03 10:50 | Outpatient (CLI) | payer OTHER ==
[~2024-02-03] VITALS: Ht 188 cm; Wt 122.5 kg
[~2024-02-03 10:50] MED LIST changes: +FLUT1BLS3 PO; +FOND10SO SC; +LOVE0.01 INJ; +[UNRECOGNIZED DRUG - CODE] SQ
[2024-02-03 10:55] VITALS: BP 148/91; O2SAT 96
[2024-02-03 11:25] LABS: HEMOGLOBIN 15.8 g/dl (13.5-17.5); MEAN CORPUSCULAR HEMOGLOBIN 30.2 pg (27.0-33.0); MEAN CORPUSCULAR HGB CONC 34.3 g/dl (32.0-36.5); MEAN CORPUSCULAR VOLUME 87.8 fl (80.0-96.0); PLATELET COUNT, AUTOMATED 118 10^3/uL (150-450); RED BLOOD COUNT 5.24 10^6/uL (4.30-6.10); WHITE BLOOD COUNT 4.1 10^3/uL (4.0-10.0)
[2024-02-03 12:19] VITALS: BP 140/88; O2SAT 95
== END 2024-02-03 12:20 ==
LOC: M INFU 10:50
PROVIDERS: ATTEND Internal Medicine Hematology
DX: E83.119 Hemochromatosis, unspecified (principal)

== ENCOUNTER → 2024-02-04 | Outpatient (CLI) | payer OTHER | LOC: M RAD 12:03 | PROVIDERS: ATTEND Radiology Diagnostic Radiology | DX: I82.412 Acute embolism and thrombosis of left femoral vein (principal) ==

== ENCOUNTER → 2024-02-17 | Outpatient (POV) | payer OTHER | LOC: M IRPOV 13:58 | PROVIDERS: ATTEND Radiology Diagnostic Radiology | DX: I87.091 Postthrombotic syndrome with other complications of right lower extremity (principal); I82.411 Acute embolism and thrombosis of right femoral vein; G62.9 Polyneuropathy, unspecified; D68.51 Activated protein C resistance; Z79.01 Long term (current) use of anticoagulants; Z86.718 Personal history of other venous thrombosis and embolism ==

== ENCOUNTER → 2024-02-19 | Outpatient (CLI) | payer OTHER ==
[2024-02-19 15:28] LABS: INR 1.67; PROTHROMBIN TIME 19.2 SECONDS (12.5-14.5)
== END ==
LOC: M PLALAB 12:26
PROVIDERS: ATTEND Internal Medicine Hematology
DX: I82.90 Acute embolism and thrombosis of unspecified vein (principal)

== ENCOUNTER 2024-04-14 07:17 | Outpatient (CLI) | payer OTHER ==
[~2024-04-14] VITALS: Ht 190.5 cm; Wt 123.9 kg
[2024-04-14 07:25] VITALS: BP 134/90; O2SAT 99
[2024-04-14 07:45] LABS: HEMATOCRIT 47.1 % (42.0-52.0); HEMOGLOBIN 16.5 g/dl (13.5-17.5); MEAN CORPUSCULAR HEMOGLOBIN 30.3 pg (27.0-33.0); MEAN CORPUSCULAR VOLUME 86.4 fl (80.0-96.0); PLATELET COUNT, AUTOMATED 122 10^3/uL (150-450); RED BLOOD COUNT 5.45 10^6/uL (4.30-6.10); WHITE BLOOD COUNT 4.8 10^3/uL (4.0-10.0)
[2024-04-14 09:00] VITALS: BP 137/87; O2SAT 96
== END 2024-04-14 09:00 ==
LOC: M INFU 07:17
PROVIDERS: ATTEND Internal Medicine Hematology
DX: E83.119 Hemochromatosis, unspecified (principal)

== ENCOUNTER → 2024-04-19 | Outpatient (CLI) | payer OTHER | LOC: M RAD 07:41 | PROVIDERS: ATTEND Radiology Diagnostic Radiology | DX: I87.009 Postthrombotic syndrome without complications of unspecified extremity (principal) ==

== ENCOUNTER → 2024-05-12 | Outpatient (CLI) | payer OTHER ==
[2024-05-12 07:32] VITALS: BP 169/83; O2SAT 97
[2024-05-12 07:49] LABS: HEMATOCRIT 45.2 % (42.0-52.0); HEMOGLOBIN 15.6 g/dl (13.5-17.5); MEAN CORPUSCULAR HEMOGLOBIN 30.5 pg (27.0-33.0); MEAN CORPUSCULAR HGB CONC 34.5 g/dl (32.0-36.5); MEAN CORPUSCULAR VOLUME 88.5 fl (80.0-96.0); PLATELET COUNT, AUTOMATED 117 10^3/uL (150-450); RED BLOOD COUNT 5.11 10^6/uL (4.30-6.10); WHITE BLOOD COUNT 4.7 10^3/uL (4.0-10.0)
== END ==
LOC: M INFU 07:19
PROVIDERS: ATTEND Internal Medicine Hematology
DX: E83.119 Hemochromatosis, unspecified (principal)

== ENCOUNTER 2024-06-06 06:38 | Day surgery (SDC) | payer OTHER ==
[~2024-06-06] VITALS: Ht 190.5 cm; Wt 126.2 kg
[~2024-06-06 06:38] MED LIST changes: +ALBU2.5V10; +ALBU8.5H; +FOND5.0S
[2024-06-06] MEDS ORDERED: propofoL 200 MG/20 ML VIAL As Ordered ONE (07:05)
[2024-06-06] MEDS ORDERED: LIDOCAINE 2% 100MG/5ML SDV (FOR ANES.) As Ordered ONE (07:06)
[2024-06-06] MEDS ORDERED: LOVE0.01 SC (07:14)
[2024-06-06 07:50] VITALS: TEMP 97.7
[2024-06-06 08:09] VITALS: BP 143/88; O2SAT 94
== END 2024-06-06 08:15 | disposition home or self-care (01) ==
LOC: M OPP 06:38
PROVIDERS: ATTEND Internal Medicine Gastroenterology
DX: K57.30 Diverticulosis of large intestine without perforation or abscess without bleeding (principal); K64.0 First degree hemorrhoids; Z86.0100 Personal history of colon polyps, unspecified; G47.30 Sleep apnea, unspecified; Z79.01 Long term (current) use of anticoagulants; Z79.51 Long term (current) use of inhaled steroids; Z79.899 Other long term (current) drug therapy; D68.51 Activated protein C resistance

== ENCOUNTER 2024-07-07 07:35 | Outpatient (CLI) | payer OTHER ==
[~2024-07-07] VITALS: Ht 190.5 cm; Wt 123.0 kg
[~2024-07-07 07:35] MED LIST changes: +LOVE0.01 SC
[2024-07-07 07:40] VITALS: BP 134/87; O2SAT 98
[2024-07-07 07:50] LABS: HEMATOCRIT 45.8 % (42.0-52.0); HEMOGLOBIN 16.2 g/dl (13.5-17.5); MEAN CORPUSCULAR HGB CONC 35.4 g/dl (32.0-36.5); MEAN CORPUSCULAR VOLUME 87.7 fl (80.0-96.0); PLATELET COUNT, AUTOMATED 108 10^3/uL (150-450); RED BLOOD COUNT 5.22 10^6/uL (4.30-6.10); WHITE BLOOD COUNT 4.8 10^3/uL (4.0-10.0)
[2024-07-07 09:15] VITALS: BP 132/87; O2SAT 97
== END 2024-07-07 09:15 ==
LOC: M INFU 07:35
PROVIDERS: ATTEND Internal Medicine Hematology
DX: E83.119 Hemochromatosis, unspecified (principal)

== ENCOUNTER 2024-08-04 07:20 | Outpatient (CLI) | payer OTHER ==
[~2024-08-04] VITALS: Ht 190.5 cm; Wt 125.0 kg
[2024-08-04 07:30] VITALS: BP 136/91; O2SAT 94
[2024-08-04 07:54] LABS: HEMATOCRIT 45.1 % (42.0-52.0); HEMOGLOBIN 15.9 g/dl (13.5-17.5); MEAN CORPUSCULAR HEMOGLOBIN 31.5 pg (27.0-33.0); MEAN CORPUSCULAR HGB CONC 35.3 g/dl (32.0-36.5); MEAN CORPUSCULAR VOLUME 89.5 fl (80.0-96.0); PLATELET COUNT, AUTOMATED 127 10^3/uL (150-450); RED BLOOD COUNT 5.04 10^6/uL (4.30-6.10); WHITE BLOOD COUNT 5.5 10^3/uL (4.0-10.0)
== END 2024-08-04 08:22 ==
LOC: M INFU 07:20
PROVIDERS: ATTEND Internal Medicine Hematology
DX: E83.119 Hemochromatosis, unspecified (principal)

== ENCOUNTER → 2024-08-16 | Outpatient (CLI) | payer OTHER | LOC: M RAD 14:18 | PROVIDERS: ATTEND Radiology Diagnostic Radiology | DX: I87.009 Postthrombotic syndrome without complications of unspecified extremity (principal) ==

== ENCOUNTER → 2024-08-31 | Outpatient (POV) | payer OTHER | LOC: M IRPOV 13:51 | PROVIDERS: ATTEND Radiology Diagnostic Radiology | DX: I87.091 Postthrombotic syndrome with other complications of right lower extremity (principal); D68.51 Activated protein C resistance; Z79.01 Long term (current) use of anticoagulants; Z86.718 Personal history of other venous thrombosis and embolism ==

== ENCOUNTER → 2024-11-25 | Outpatient (CLI) | payer OTHER ==
[~2024-11-25] MED LIST changes: -EQL50TAB2 PO; +METO1TAB32 PO; +VITA1TAB82 PO
[2024-11-25 17:43] LABS: C REACTIVE PROTEIN QUANTITATIV 2.86 MG/DL (<1.0)
[2024-11-25 17:44] LABS: ALT/SGPT 43.0 U/L (7.0-40); AST/SGOT 27.0 U/L (<34); CALCIUM LEVEL 9.1 MG/DL (8.5-10.1); CARBON DIOXIDE LEVEL 27.0 MMOL/L (20-31); CHLORIDE LEVEL 104.0 MMOL/L (98-107); CREATININE FOR GFR 1.04 MG/DL (0.70-1.30); GLOMERULAR FILTRATION RATE 85.9 (>56); POTASSIUM SERUM 4.2 MMOL/L (3.5-5.1); SODIUM LEVEL 145.0 MMOL/L (136-145)
[2024-11-25 17:58] LABS: BASO # 0.0 10^3/uL (0.0-0.2); BASO % 0.4 % (0.0-1.0); EOS # 0.1 10^3/uL (0.0-0.5); EOS % 1.4 % (0.0-3.0); LYMPH # 1.8 10^3/uL (1.5-5.0); LYMPH % 37.0 % (24.0-44.0); MONO # 0.6 10^3/uL (0.0-0.8); MONO % 12.2 % (2.0-8.0); NEUTROPHILS # 2.4 10^3/uL (1.5-8.5); NEUTROPHILS % 49.0 % (36.0-66.0); PLATELET COUNT, AUTOMATED 119 10^3/uL (150-450)
[2024-11-25 18:53] LABS: ERYTHROCYTE SEDIMENTATION RATE 11 mm/hr (0-20)
== END ==
LOC: M WUC 15:07
PROVIDERS: ATTEND Physician Assistant
DX: M25.562 Pain in left knee (principal); M25.462 Effusion, left knee

== ENCOUNTER 2024-12-13 01:19 | Emergency (ER) | payer OTHER ==
[~2024-12-13] VITALS: Ht 190.5 cm; Wt 127.6 kg
[2024-12-13 01:24] VITALS: BP 155/92; TEMP 97; O2SAT 97
== END 2024-12-13 02:39 | disposition left against medical advice (07) ==
LOC: M ED 01:19
DX: Z53.21 Procedure and treatment not carried out due to patient leaving prior to being seen by health care provider (principal)

== ENCOUNTER → 2025-01-20 | Outpatient (CLI) | payer OTHER | LOC: M SLEEP 20:00 | PROVIDERS: ATTEND Family Medicine | DX: G47.33 Obstructive sleep apnea (adult) (pediatric) (principal) ==